=== PATIENT | female | born 2000 | race Caucasian/White ===

== ENCOUNTER 2023-02-13 12:01 | Inpatient (IN) | payer BC ==
[2023-02-13 12:26] LABS: HEMATOCRIT 34.8 % (37.0-47.0); HEMOGLOBIN 11.4 g/dL (12.0-16.0); MEAN CORPUSCULAR HEMOGLOBIN 27.5 pg (27.0-34.0); MEAN CORPUSCULAR HGB CONC 32.8 g/dL (33.0-35.0); MEAN CORPUSCULAR VOLUME 83.9 fL (80-100); RED BLOOD CELL COUNT 4.15 10^6/uL (4.2-5.4); WHITE BLOOD CELL COUNT,WBC 17.3 10^3/uL (5.0-10.0)
[2023-02-13] MEDS ORDERED: Tranexamic Acid 1,000 MG in Sodium Chloride 0.9% 100 ML IV PRN (12:26)
[2023-02-13] MEDS ORDERED: Misoprostol 400 MCG (4 X 100 MCG TAB) RECTAL PRN (12:26)
[2023-02-13] MEDS ORDERED: Methylergonovine 0.2 MG/1 ML Amp IM PRN (12:26)
[2023-02-13] MEDS ORDERED: Ondansetron 4 MG/2 ML SDV IVPUSH PRN (12:26)
[2023-02-13] MEDS ORDERED: Sodium Chloride 0.9% 10 ML Syringe FLUSH PRN (12:26)
[2023-02-13] MEDS ORDERED: Carboprost Tromethamine 250 MCG/1 ML Amp IM PRN (12:26)
[2023-02-13] MEDS ORDERED: Lactated Ringers 1,000 ML IV ONE (12:26)
[2023-02-13] MEDS ORDERED: Acetaminophen 325 MG Tab PO PRN (12:26)
[2023-02-13] MEDS ORDERED: Lidocaine 1% 30 ML SDV INJECT ONE (12:26)
[2023-02-13] MEDS ORDERED: Oxytocin/Normal Saline 30 UNIT/500 ML BAG IV SCH (12:30)
[2023-02-13] MEDS ORDERED: Lactated Ringers 1,000 ML IV SCH (12:30)
[2023-02-13] MEDS ORDERED: Bupivacaine 0.25% 10 ML SDV ONE (12:36)
[2023-02-13] MEDS ORDERED: fentaNYL 100 MCG/2 ML SDV ONE (12:36)
[2023-02-13] MEDS ORDERED: ePHEDrine 50 MG/ML SDV IVPUSH PRN (12:55)
[2023-02-13] MEDS ORDERED: Phenylephrine HCl In 0.9% NaCl 1 MG/10 ML Syringe IVPUSH PRN (12:55)
[2023-02-13] MEDS ORDERED: Ropivacaine 200 MG in Premix Bag 1 BAG EPIDUR SCH (13:00)
[2023-02-13] MEDS ORDERED: Simethicone 80 MG Tab.Chew PO PRN (15:40)
[2023-02-13] MEDS ORDERED: Oxytocin 10 Units/1 ML SDV IM PRN (15:40)
[2023-02-13] MEDS: Ibuprofen 800 MG Tab PO PRN (17:03)
[2023-02-13] MEDS: Benzocaine/Menthol 20%-0.5% Spray 78 GM Cannister TOP PRN ×2 (17:03→20:06)
[2023-02-13] MEDS ORDERED: Witch Hazel Medicated Pads 100/Jar TOP PRN (19:13)
[2023-02-13] MEDS: Docusate Sodium 100 MG Cap PO SCH (20:06)
[2023-02-13] MEDS: ceFAZolin 1 GM Vial IVPUSH SCH (20:31)
[2023-02-13] MEDS ORDERED: ceFAZolin 1 GM Vial IVPUSH SCH (22:00)
[2023-02-14] MEDS: Ibuprofen 800 MG Tab PO PRN ×3 (02:19→18:12)
[2023-02-14] MEDS: ceFAZolin 1 GM Vial IVPUSH SCH ×3 (03:37→19:57)
[2023-02-14 06:38] LABS: HEMATOCRIT 29.7 % (37.0-47.0); HEMOGLOBIN 9.5 g/dL (12.0-16.0); MEAN CORPUSCULAR HEMOGLOBIN 27.2 pg (27.0-34.0); MEAN CORPUSCULAR VOLUME 85.1 fL (80-100); RED BLOOD CELL COUNT 3.49 10^6/uL (4.2-5.4); WHITE BLOOD CELL COUNT,WBC 15.6 10^3/uL (5.0-10.0)
[2023-02-14] MEDS: Acetaminophen 325 MG Tab PO PRN ×2 (08:05→18:11)
[2023-02-14] MEDS: Prenatal Multivitamin with Calcium/Folic Acid/Iron Tab PO SCH (08:05)
[2023-02-14] MEDS: Docusate Sodium 100 MG Cap PO SCH ×2 (08:05→21:33)
[2023-02-15] MEDS: Acetaminophen 325 MG Tab PO PRN ×2 (01:26→08:52)
[2023-02-15] MEDS: Ibuprofen 800 MG Tab PO PRN (05:36)
[2023-02-15] MEDS: Docusate Sodium 100 MG Cap PO SCH (08:52)
[2023-02-15] MEDS: Prenatal Multivitamin with Calcium/Folic Acid/Iron Tab PO SCH (08:52)
[2023-02-15] MEDS ORDERED: Bupivacaine 0.25% 10 ML SDV EPIDUR ONE (11:39)
[2023-02-15] MEDS ORDERED: fentaNYL 100 MCG/2 ML SDV IV ONE (11:39)
== END 2023-02-15 11:40 | disposition home or self-care (01) | DRG 542 ==
LOC: DL.OBCHECK 12:01 → DL.OB 12:21 → UNDOADMOB 12:28 → OBSVTOIN 14:41 → INTOOBSV 14:41 → DL.OB 14:41
PROVIDERS: ADMIT Family Medicine; ATTEND Family Medicine
PROC: 10D07Z6 Extraction of Products of Conception, Vacuum, Via Natural or Artificial Opening (ICD-10-PCS; principal; 2023-02-13)
PROC: 3E0R3BZ Introduction of Anesthetic Agent into Spinal Canal, Percutaneous Approach (ICD-10-PCS; 2023-02-13)
PROC: 00HU33Z Insertion of Infusion Device into Spinal Canal, Percutaneous Approach (ICD-10-PCS; 2023-02-13)
PROC: 0DQP0ZZ Repair Rectum, Open Approach (ICD-10-PCS; 2023-02-13)
DX: O70.3 Fourth degree perineal laceration during delivery (principal); Z37.0 Single live birth; Z3A.39 39 weeks gestation of pregnancy
CPT/HCPCS: 01967; 36415; 59300; 59409; 85027; A9270-GY; J0690; J2590; J2795; J3010; J3490

== ENCOUNTER 2025-03-12 08:12 | Inpatient (IN) | payer BC ==
[2025-03-12] MEDS: Lactated Ringers 1,000 ML IV SCH (10:30)
[2025-03-12] MEDS ORDERED: Carboprost Tromethamine 250 MCG/1 ML Amp IM PRN ×2 (11:07→20:30)
[2025-03-12] MEDS ORDERED: Sodium Chloride 0.9% 10 ML Syringe FLUSH PRN (11:07)
[2025-03-12] MEDS ORDERED: fentaNYL 100 MCG/2 ML SDV IVPUSH PRN (11:07)
[2025-03-12] MEDS ORDERED: Nalbuphine HCl 10 MG/ 1ML Amp IM PRN (11:07)
[2025-03-12] MEDS ORDERED: Lactated Ringers 1,000 ML IV SCH (11:15)
[2025-03-12] MEDS ORDERED: Oxytocin/Lactated Ringers 30 UNIT/500 ML BAG IV SCH (11:15)
[2025-03-12] MEDS: Penicillin G Potassium 5 MILLUNITS in Sodium Chloride 0.9% 100 ML IV ONE (11:38)
[2025-03-12 12:02] LABS: PLATELET COUNT,PLT 248.0 10^3/uL (150-450); RED BLOOD CELL COUNT 4.33 10^6/uL (4.2-5.4); WHITE BLOOD CELL COUNT,WBC 10.8 10^3/uL (5.0-10.0)
[2025-03-12] MEDS: Penicillin G Potassium 3 MILLUNITS in Sodium Chloride 0.9% 100 ML IV SCH ×2 (12:47→16:00)
[2025-03-12] MEDS: Ondansetron 4 MG/2 ML SDV IVPUSH PRN (18:07)
[2025-03-12] MEDS: Oxytocin/Normal Saline 30 UNIT/500 ML BAG IV SCH (19:17)
[2025-03-12] MEDS ORDERED: Oxytocin 10 Units/1 ML SDV IM PRN (20:30)
[2025-03-12] MEDS: Lactated Ringers 1,000 ML IV ONE (20:59)
[2025-03-12] MEDS: Witch Hazel Medicated Pads 100/Jar TOP PRN (22:00)
[2025-03-12] MEDS: Benzocaine/Menthol 20%-0.5% Spray 78 GM Cannister TOP PRN (22:00)
[2025-03-13] MEDS ORDERED: Ropivacaine 100 ML EPIDUR ONE (07:59)
[2025-03-13] MEDS ORDERED: Ketorolac 30 MG/ML SDV IVPUSH ONE (07:59)
[2025-03-13] MEDS ORDERED: Ondansetron 4 MG/2 ML SDV IV ONE (07:59)
[2025-03-13] MEDS ORDERED: fentaNYL 100 MCG/2 ML SDV EPIDUR ONE (07:59)
[2025-03-13] MEDS ORDERED: Prenatal Multivitamin with Calcium/Folic Acid/Iron Tab PO SCH (09:00)
== END 2025-03-13 08:00 | disposition home or self-care (01) | DRG 560 ==
LOC: DL.OBCHECK 08:12 → DL.OB 11:06 → OBSVTOIN 19:13
PROVIDERS: ADMIT Family Medicine; ATTEND Family Medicine
PROC: 0KQM0ZZ Repair Perineum Muscle, Open Approach (ICD-10-PCS; principal; 2025-03-12)
PROC: 10E0XZZ Delivery of Products of Conception, External Approach (ICD-10-PCS; principal; 2025-03-12)
PROC: 3E0R3BZ Introduction of Anesthetic Agent into Spinal Canal, Percutaneous Approach (ICD-10-PCS; principal; 2025-03-12)
DX: O36.8130 Decreased fetal movements, third trimester, not applicable or unspecified (principal); O60.14X0 Preterm labor third trimester with preterm delivery third trimester, not applicable or unspecified; Z3A.35 35 weeks gestation of pregnancy; Z37.0 Single live birth; O70.1 Second degree perineal laceration during delivery
CPT/HCPCS: 01967; 36415; 51701; 59409; 59414; 85027; 87077; 87081; 87186; A9270-GY; J1885; J2405; J2540; J2590; J2795; J3010; J7120